=== PATIENT | female | born 2000 | race Caucasian/White ===

== ENCOUNTER 2023-12-31 19:17 | Emergency (ER) | payer OTHER ==
--- NOTE | 2023-12-31 19:38 | EDPHYS ---
Physician Documentation [facility] Name: Jeanne Rodriguez Age: 23 yrs Sex: Female : 2000 Arrival Date: 12/31/2023 Time: 19:17 Bed 11 Private MD: ED Physician Vilma Juarez HPI: 12/30 19:56 This 23 yrs old Female presents to ER via Unassigned with complaints of Cat Bite. kb 19:56 Pt is a 23 year old female who presents for cat bite to right hand that occurred kb yesterday at 10am. States she developed redness and swelling at 5pm last night. Denies fever, decreased ROM. . 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 - Infectious Disease History:: Denies. - Social history:: Smoking status: Patient denies any tobacco usage or history of. Patient/guardian denies using alcohol, street drugs. ROS: 19:54 Constitutional: As per HPI kb Exam: 19:54 Constitutional: This is a well developed, well nourished patient who is awake, alert, kb and in no acute distress. Head/Face: Normocephalic, atraumatic. ENT: Moist Mucous membranes Cardiovascular: Regular rate Respiratory: Respirations even and unlabored. No increased work of breathing. Talking in full sentences MS/ Extremity: Pulses equal, no cyanosis. Neurovascular intact. Full, normal range of motion. Neuro: Awake and alert, GCS 15, oriented to person, place, time, and situation. Moves all extremities. Normal gait. 19:54 Skin: puncture wound to top of right hand with mild erythema and swelling. Vital Signs: 19:45 BP 132 / 89; Pulse 76; Resp 16; Temp 98.2(O); Pulse Ox 100% on R/A; Weight 61.23 kg km8 (R); Height 5 ft. 5 in. (R); Pain 1/10; 19:45 Body Mass Index 22.46 (61.23 kg, 165.1 cm) km8 19:45 Pain Scale: Adult km8 [place] Coma Score: 19:45 Eye Response: spontaneous(4). Motor Response: obeys commands(6). Verbal Response: km8 oriented(5). Total: 15. MDM: 19:23 Patient medically screened. 19:54 Differential diagnosis: superficial laceration, cellulitis, abscess. Data reviewed: kb vital signs, nurses notes. Counseling: I had a detailed discussion with the patient and/or guardian regarding the historical points, exam findings, and any diagnostic results supporting the discharge/admit diagnosis, the need for outpatient follow up, a family practitioner, to return to the emergency department if symptoms worsen or persist or if there are any questions or concerns that arise at home. ED course: Educated on strict return precautions and need for close follow up. Pt will call PCP to make appt tomorrow. Administered Medications: 20:08 Drug: Amoxicillin-Clavulanate PO 875 mg PO once Route: PO; km8 20:08 Follow up: Response: Medication administered at discharge. km8 Disposition Summary: 12/31/23 19:38 Discharge Ordered Notes: Location: Home kb Condition: Stable kb Diagnosis - Bitten by cat kb Followup: kb - With: Emergency Department - When: As needed - Reason: Worsening of condition Followup: kb - With: Private Physician - When: 2 - 3 days - Reason: Recheck today's complaints, Continuance of care, Re-evaluation by your physician Discharge Instructions: - Discharge Summary Sheet kb - Animal Bite, Adult, [id number] kb Forms: - Medication Reconciliation Form kb - Thank You Letter kb - Antibiotic Education kb - Prescription Opioid Use kb - Patient Portal Instructions kb - Leadership Thank You Letter kb Prescriptions: - Augmentin 875-125 mg Oral Tablet - take 1 tablet ORAL route every 12 hours for 10 days; 20 tablet; Refills: 0, kb Product Selection Permitted Signatures: Alethea Nixon FNP-C FNP-Ckb Marx, Katie, EMILIA RN km8
[2023-12-31] MEDS ORDERED: AMOX/K CLAV 875 MG TAB ONE (20:05)
--- NOTE | 2023-12-31 20:09 | ER ---
Nurse's Notes [facility] Name: Jeanne Rodriguez Age: 23 yrs Sex: Female : 2000 Arrival Date: 12/31/2023 Time: 19:17 Bed 11 Private MD: Diagnosis: Bitten by cat Presentation: 12/30 19:45 Chief complaint: Patient states: cat bite to right hand at work yesterday at [place] [id number] [employer] with swelling and pain. Coronavirus screen: Client denies travel out of the [place] in the last 14 days. Ebola Screen: No symptoms or risks identified at this time. Initial Sepsis Screen: Does the patient meet any 2 criteria? No. Patient's initial sepsis screen is negative. Does the patient have a suspected source of infection? No. Patient's initial sepsis screen is negative. Risk Assessment: Do you want to hurt yourself or someone else? Patient reports no desire to harm self or others. Onset of symptoms was December 30, 2023. 19:45 Method Of Arrival: Ambulatory [facility] 19:45 Acuity: EMELAI 4 [facility] Triage Assessment: 19:45 Bite description: bite sustained to dorsum of right hand by a cat, animal information: [facility] Appearance: appeared well, is from animal, vaccination(s) is current, was sustained 1 day ago. General: Appears in no apparent distress. comfortable, Behavior is calm, cooperative, appropriate for age. Pain: Complains of pain in dorsum of right hand. EENT: No signs and/or symptoms were reported regarding the EENT system. Neuro: Level of Consciousness is awake, alert, obeys commands, Oriented to person, place, time, situation. Cardiovascular: Denies chest pain, shortness of breath, Patient's skin is warm and dry. Respiratory: Airway is patent Respiratory effort is even, unlabored, Respiratory pattern is regular, symmetrical. GI: No signs and/or symptoms were reported involving the gastrointestinal system. : No signs and/or symptoms were reported regarding the genitourinary system. Derm: Skin is intact, is healthy with good turgor, Skin is dry, Skin is pink, warm \T\ dry. normal, Skin temperature is warm Wound noted dorsum of right hand Wound is cat bite. Musculoskeletal: No signs and/or symptoms reported regarding the musculoskeletal system. Range of motion: intact in all extremities. 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 - Infectious Disease History:: Denies. - Social history:: Smoking status: Patient denies any tobacco usage or history of. Patient/guardian denies using alcohol, street drugs. Screenin:45 [facility] ED Fall Risk Assessment (Adult) History of falling in the last 3 months, km8 including since admission No falls in past 3 months (0 pts) Confusion or Disorientation No (0 pts) Intoxicated or Sedated No (0 pts) Impaired Gait No (0 pts) Mobility Assist Device Used No (0 pt) Altered Elimination No (0 pt) Score/Fall Risk Level 0 - 2 = Low Risk Oriented to surroundings, Maintained a safe environment, Educated pt \T\ family on fall prevention, incl call for assistance when getting out of bed, Assessed \T\ reinforced patient's understanding of fall precautions. Abuse screen: Denies threats or abuse. Denies injuries from another. Nutritional screening: No deficits noted. Tuberculosis screening: No symptoms or risk factors identified. Assessment: 19:45 Reassessment: see triage assessment. km8 Vital Signs: 19:45 BP 132 / 89; Pulse 76; Resp 16; Temp 98.2(O); Pulse Ox 100% on R/A; Weight 61.23 kg km8 (R); Height 5 ft. 5 in. (R); Pain 1/10; 19:45 Body Mass Index 22.46 (61.23 kg, 165.1 cm) km8 19:45 Pain Scale: Adult 8 [place] Coma Score: 19:45 Eye Response: spontaneous(4). Motor Response: obeys commands(6). Verbal Response: km8 oriented(5). Total: 15. ED Course: 19:22 Patient arrived in ED. ra3 19:23 [facility]C [facility] kb 19:23 Vilma Juarez MD is Attending Physician. kb 19:45 Arm band placed on right wrist. Patient placed in an exam room, on a stretcher. km8 19:45 Patient has correct armband on for positive identification. Bed in low position. Call km8 light in reach. Side rails up X 1. NIBP on. 19:45 No provider procedures requiring assistance completed. Patient did not have IV access km8 during this emergency room visit. 19:56 Claudia Quiros, RN is Primary Nurse. km8 19:59 Triage completed. km8 20:02 Provided Education on: d/c teaching. km8 Administered Medications: 20:08 Drug: Amoxicillin-Clavulanate PO 875 mg PO once Route: PO; km8 20:08 Follow up: Response: Medication administered at discharge. km8 Medication: 19:45 VIS not applicable for this client. km8 Outcome: 19:38 Discharge ordered by . kb 20:08 Discharged to home ambulatory, km8 20:08 Condition: good 20:08 Discharge instructions given to patient, Instructed on discharge instructions, follow up and referral plans. medication usage, Demonstrated understanding of instructions, follow-up care, medications, Prescriptions given X 1, 20:08 Patient left the ED. km8 Signatures: Alethea Nixon, LAPEL STITCHER-C LAPEL STITCHER-Ckb Claudia Quiros, RN RN km8 Deb Cox ra3 Corrections: (The following items were deleted from the chart) 20:08 20:03 Condition: good km8 km8 20:08 20:03 Discharged to home ambulatory, km8 km8 20:08 20:03 Discharge instructions given to patient, Instructed on discharge instructions, km8 follow up and referral plans. medication usage, Demonstrated understanding of instructions, follow-up care, medications, Prescriptions given X 1, km8
[2024-01-01 08:31] VITALS: BP 132/89; TEMP 98.2; O2SAT 100
== END 2023-12-31 20:08 | disposition home or self-care (01) ==
LOC: ER 19:17
DX: S61.431A Puncture wound without foreign body of right hand, initial encounter (principal); W55.01XA Bitten by cat, initial encounter